=== PATIENT | female | born 1995 | race Caucasian/White ===

== ENCOUNTER 2018-03-07 14:24 | Emergency (ER) | payer BC ==
[2018-03-07 14:29] VITALS: BP 144/61
--- NOTE | 2018-03-07 14:32 | EDPHY ---
H & P Time Seen by Provider: 03/07/18 14:30 HPI/ROS: CHIEF COMPLAINT: Foreign body right ear HISTORY OF PRESENT ILLNESS: 22-year-old immunocompetent female arrives via private vehicle complaining of a portion of her headphones stuck in her right ear. Occurred shortly prior to arrival. No otorrhea. No hearing loss. No barotrauma. PHYSICAL EXAM (Prior to examination, patient consented to physical exam, hands were washed and my usual and customary physical exam procedures followed) 1) GENERAL: Well-developed, well-nourished, alert and oriented. Appears to be in no acute distress. 2) HEAD: Normocephalic 3) HEENT: On the patient's right external auditory canal a white piece of ear phone is visualized. No signs of infection. 4) LUNGS: Breathing comfortably. Smoking Status: Never smoked Constitutional: Initial Vital Signs Temperature (C) 37.1 C 03/07/18 14:26 Heart Rate 69 03/07/18 14:26 Respiratory Rate 18 03/07/18 14:26 Blood Pressure 144/61 H 03/07/18 14:26 O2 Sat (%) 97 03/07/18 14:26 O2 Delivery Mode Room Air Allergies/Adverse Reactions: No Known Allergies Allergy (Unverified 03/07/18 14:26) Home Medications: Medication Instructions Recorded NK [No Known Home Meds] 03/07/18 MDM/Departure - MDM Procedures: Procedure: Foreign body removal Indication: Visualized foreign body in ear Using bayonet forceps I was able to identify the foreign body in easily removed this. The external auditory canals and re-examined and is clear with no foreign bodies no signs of infection no signs of obvious perforation of the tympanic membrane. Patient tolerated procedure well. - Depart Disposition: Home, Routine, Self-Care Clinical Impression: Foreign body in ear Qualifiers: Encounter type: initial encounter Laterality: right Qualified Code(s): T16.1XXA - Foreign body in right ear, initial encounter Condition: Good Instructions: Ear Foreign Body (ED) Additional Instructions: Return to the ER if you have bleeding, discharge from ear or any other symptoms that concern you. Referrals: Janet Mcginnis MD [Medical Doctor] - 1-2 days without fail
== END 2018-03-07 14:43 | disposition home or self-care (01) ==
DX: T16.1XXA Foreign body in right ear, initial encounter (principal); X58.XXXA Exposure to other specified factors, initial encounter

== ENCOUNTER 2018-12-11 07:52 | Emergency (ER) | payer OTHER, BC ==
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
[2018-12-11 09:38] VITALS: BP 113/78
== END 2018-12-11 09:38 | disposition home or self-care (01) ==
LOC: EDUNIT#
DX: S16.1XXA Strain of muscle, fascia and tendon at neck level, initial encounter (principal); V43.52XA Car driver injured in collision with other type car in traffic accident, initial encounter; Y92.410 Unspecified street and highway as the place of occurrence of the external cause; Y93.9 Activity, unspecified; Y99.9 Unspecified external cause status